=== PATIENT | female | born 1990 | race Caucasian/White ===

== ENCOUNTER → 2017-03-01 | Outpatient (CLI) | payer BC | LOC: EDBD → MW.CHOBGYN 11:09 | PROVIDERS: ATTEND Advanced Practice Midwife | DX: M54.5 Low back pain (principal) | CPT/HCPCS: 81003 ==

== ENCOUNTER 2017-03-06 19:36 | Emergency (ER) | payer BC ==
[2017-03-06] MEDS ORDERED: Acetaminophen 325 MG Tab PO ONE (20:30)
[2017-03-06] MEDS ORDERED: Acetaminophen 500 MG Tab PO ONE (20:32)
[2017-03-06] MEDS ORDERED: Penicillin V Potassium 500 MG Tab PO STA (20:46)
[2017-03-06] MEDS ORDERED: Ketorolac 60 MG/2 ML SDV IM ONE (20:46)
--- NOTE | 2017-03-06 20:47 | EDM.PDOC ---
ED HPI ENT - General Chief Complaint: ENT Problem Stated Complaint: PT HAS SORE THROAT AND BODY PAIN Time Seen by Provider: 03/06/17 19:55 Source of Information: Reports: Patient History Limitations: Reports: No limitations - History of Present Illness INITIAL COMMENTS - FREE TEXT/NARRATIVE: HISTORY AND PHYSICAL: History of present illness: [26-year-old female complaining a two-day history of worsening sore throat with difficulty swallowing. No change of voice or difficulty breathing. Patient does report fevers chills and sweats but has no headache or stiff neck.] Review of systems: As per history of present illness and below otherwise all systems reviewed and negative. Past medical history: As per history of present illness and as reviewed below otherwise noncontributory. Surgical history: As per history of present illness and as reviewed below otherwise noncontributory. Social history: No reported history of drug or alcohol abuse. Family history: As per history of present illness and as reviewed below otherwise noncontributory. Physical exam: Patient is alert with normal voice no stridor or tachypnea. Oropharynx with bilateral tonsillar erythema and white exudates with no mass or asymmetry midline uvula. HEENT: Atraumatic, normocephalic, pupils reactive, negative for conjunctival pallor or scleral icterus, mucous membranes moist, neck supple, nontender, trachea midline. Lungs: Clear to auscultation, breath sounds equal bilaterally, chest nontender. Heart: S1S2, regular, negative for clicks, rubs, or JVD. Abdomen: Soft, nondistended, nontender. Negative for masses or hepatosplenomegaly. Negative for costovertebral tenderness. Pelvis: Stable nontender. Genitourinary: Deferred. Rectal: Deferred. Extremities: Atraumatic, negative for cords or calf pain. Neurovascular unremarkable. Neuro: Awake, alert, oriented. Cranial nerves II through XII unremarkable. Cerebellum unremarkable. Motor and sensory unremarkable throughout. Exam nonfocal. Diagnostics: [] Therapeutics: [] Impression: [] Plan: [Signs and symptoms consistent with strep pharyngitis in a well-appearing patient with some fevers and remainder exam is benign]. Pen-Vee K dose given in the ED as well as prescription for an entire course of medication. Patient aware to take Tylenol /ibuprofen as needed for pain and followup with her in one to 2 days. Patient will return immediately for new severe or worsening symptoms Definitive disposition and diagnosis as appropriate pending reevaluation and review of above. 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 Respiratory History: Reports: None Gastrointestinal History: Reports: None Genitourinary History: Reports: None Musculoskeletal History: Reports: None Neurological History: Reports: Seizure Endocrine/Metabolic History: Reports: None - Infectious Disease History Infectious Disease History: Reports: None - Past Surgical History Female Surgical History: Reports: None Social & Family History - Family History Family Medical History: Noncontributory - Tobacco Use Smoking Status *Q: Current Every Day Smoker Years of Tobacco use: 1 Packs/Tins Daily: 1 - Recreational Drug Use Recreational Drug Use: No ED ROS ENT - Review of Systems Review Of Systems: See Below (PI) ED EXAM, ENT - Physical Exam Exam: See Below (History of present illness) Course - Vital Signs Last Recorded V/S: Last Vital Signs Temp 37.3 C 03/06/17 21:56 Pulse 94 03/06/17 21:56 Resp 16 03/06/17 21:56 BP 110/59 L 03/06/17 21:56 Pulse Ox 96 03/06/17 21:56 - Orders/Labs/Meds Meds: Medications Discontinued Medications Generic Name Dose Route Start Last Admin Trade Name Freq PRN Reason Stop Dose Admin Acetaminophen 1,000 mg 03/06/17 20:30 Tylenol PO 03/06/17 20:31 NOW ONE Acetaminophen 1,000 mg 03/06/17 20:32 03/06/17 20:36 Tylenol Extra Strength PO 03/06/17 20:33 1,000 mg ONETIME ONE Administration Ketorolac Tromethamine 60 mg 03/06/17 20:46 03/06/17 21:01 Toradol IM 03/06/17 20:47 60 mg ONETIME ONE Administration Penicillin V Potassium 500 mg 03/06/17 20:46 03/06/17 21:01 Veetids PO 03/06/17 20:47 500 mg NOW STA Administration Departure - Departure Time of Disposition: 20:47 Disposition: Home, Self-Care 01 Condition: good Clinical Impression: Strep pharyngitis, Pharyngitis Prescriptions: Penicillin V Potassium [IJP: Penicillin V Potassium] 500 mg PO .EVERY 6 HOURS # 40 tab Instructions: Strep Throat, [id number] Referrals: PCP,None [Primary Care Provider] - Forms: ED Department Discharge Additional Instructions: You have strep throat. Rest and drink plenty of fluids. Finish penicillin as prescribed 4 times a day for 10 days. Very warm saltwater gargles might be helpful. Take 800 mg of Motrin every 6 hours and Tylenol every 4 hours as needed for pain. Followup with your Dr. in one to 2 days and return immediately for new severe or worsening symptoms, difficulty breathing, or voice changes
[2017-03-06 22:09] VITALS: BP 110/59
== END 2017-03-06 22:05 | disposition home or self-care (01) ==
LOC: EDBD 19:36 → MW.ED 19:36
DX: J02.0 Streptococcal pharyngitis (principal); F17.210 Nicotine dependence, cigarettes, uncomplicated; Z88.8 Allergy status to other drugs, medicaments and biological substances
CPT/HCPCS: 87804; 87880; 96372; 99283; A9270; J1885

== ENCOUNTER → 2017-03-15 | Outpatient (CLI) | payer BC ==
--- NOTE | 2017-03-18 09:36 | US ---
EXAM DATE: 03/15/17 PATIENT'S AGE: 26 Patient: BRENDA REARDON Facility: [place], [place] Site . Site : 1990 Study: US Pelvis [id number]/2017 3:18:45 PM Ordering Physician: Tremayne Bingham Final Report: INDICATION: Followup left ovarian cyst noted on prior CT. COMPARISON: CT abdomen pelvis dated 10/26/2016 TECHNIQUE: 2D grimm scale and color Doppler images were acquired of the ovaries using a transvaginal approach. FINDINGS: There has been near complete resolution of the left ovarian cyst. Currently only a small subcapsular fluid pocket remains along the lateral margin of the left ovary. Adjacent to this are normal-appearing follicles. The left ovary measures 4.4 x 1.9 x 1.9 cm. The right ovary contains small follicles and appears normal. It measures 2.8 x 2.5 x 2.6 cm. The ovaries demonstrate normal arterial and venous blood flow on color Doppler analysis. There are no suspicious fluid collections within the cul-de-sac. IMPRESSION: Resolution of left ovarian cyst. Dictated by Dno Smith MD @ Mar 15 2017 4:54PM (Electronic Signature) Report Signed by Proxy and Original Signed Document filed in the Medical Record. MTDD
== END ==
LOC: EDBD → MW.US 13:52
PROVIDERS: ATTEND Advanced Practice Midwife
DX: N83.209 Unspecified ovarian cyst, unspecified side (principal)
CPT/HCPCS: 76856; 76856-26

== ENCOUNTER 2017-10-25 21:42 | Emergency (ER) | payer BC ==
[2017-10-25] MEDS ORDERED: Sodium Chloride 0.9% 1,000 ML IV ONE (21:52)
--- NOTE | 2017-10-25 21:56 | EDM.PDOC ---
ED HPI GENERAL MEDICAL PROBLEM - General Chief Complaint: General Stated Complaint: PT HAS DIFFICULTY BREATHING Time Seen by Provider: 10/25/17 21:50 - History of Present Illness INITIAL COMMENTS - FREE TEXT/NARRATIVE: HISTORY AND PHYSICAL: History of present illness: Patient 27-year-old female presents with a concern of general malaise and shortness of breath has been worse over the last 24 hours she denies fever chills nausea vomiting chest pain palpitations abdominal pain or any other concern Review of systems: As per history of present illness and below otherwise all systems reviewed and negative. Past medical history: As per history of present illness and as reviewed below otherwise noncontributory. Surgical history: As per history of present illness and as reviewed below otherwise noncontributory. Social history: No reported history of drug or alcohol abuse. Family history: As per history of present illness and as reviewed below otherwise noncontributory. Physical exam: HEENT: Atraumatic, normocephalic, pupils reactive, negative for conjunctival pallor or scleral icterus, mucous membranes moist, throat clear, neck supple, nontender, trachea midline. Lungs: Clear to auscultation, breath sounds equal bilaterally, chest nontender. Heart: S1S2, regular, negative for clicks, rubs, or JVD. Abdomen: Soft, nondistended, nontender. Negative for masses or hepatosplenomegaly. Negative for costovertebral tenderness. Pelvis: Stable nontender. Genitourinary: Deferred. Rectal: Deferred. Extremities: Atraumatic, negative for cords or calf pain. Neurovascular unremarkable. Neuro: Awake, alert, oriented. Cranial nerves II through XII unremarkable. Cerebellum unremarkable. Motor and sensory unremarkable throughout. Exam nonfocal. Diagnostics: CBC CMP UA UDS chest x-ray influenza screen d-dimer Therapeutics: Normal saline 1 L bolus Impression: #1 general malaise #2 dyspnea Definitive disposition and diagnosis as appropriate pending reevaluation and review of above. - Related Data Allergies Allergy/AdvReac Type Severity Reaction Status Date / Time ferrous sulfate Allergy Hives Verified 10/25/17 21:57 Home Meds: Home Meds . 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 Respiratory History: Reports: None Gastrointestinal History: Reports: None Genitourinary History: Reports: None Musculoskeletal History: Reports: None Neurological History: Reports: Seizure Endocrine/Metabolic History: Reports: None - Infectious Disease History Infectious Disease History: Reports: None - Past Surgical History Female Surgical History: Reports: None Social & Family History - Family History Family Medical History: Noncontributory - Tobacco Use Smoking Status *Q: Current Every Day Smoker Years of Tobacco use: 1 Packs/Tins Daily: 1 - Recreational Drug Use Recreational Drug Use: No ED ROS GENERAL - Review of Systems Review Of Systems: ROS reveals no pertinent complaints other than HPI. ED EXAM, GENERAL - Physical Exam Exam: See Below (See dictation) Course - Vital Signs Last Recorded V/S: Last Vital Signs Temp 36.5 C 10/25/17 21:54 Pulse 78 10/25/17 21:54 Resp 16 10/25/17 21:54 BP 120/67 10/25/17 21:54 Pulse Ox 100 10/25/17 21:54 - Orders/Labs/Meds Orders: Active Orders 24 hr Category Date Time Status EKG Documentation Completion [RC] STAT Care 10/25/17 21:51 Active Chest 2V [CR] Stat Exams 10/25/17 21:52 Ordered COMPREHENSIVE METABOLIC PN,CMP [CHEM] Stat Lab 10/25/17 22:10 Received Sodium Chloride 0.9% [Normal Saline] 1,000 ml Med 10/25/17 21:52 Active IV STAT Medication Orders Sodium Chloride (Normal Saline) 1,000 mls @ 999 mls/hr IV STAT ONE Stop: 10/25/17 22:52 Last Admin: 10/25/17 22:21 Dose: 999 mls/hr Labs: Laboratory Tests 10/25/17 10/25/17 10/25/17 Range/Units 21:50 21:50 22:10 WBC 10.24 (4.0-11.0) K/uL RBC 4.86 (4.30-5.90) M/uL Hgb 11.6 L (12.0-16.0) g/dL Hct 35.3 L (36.0-46.0) % MCV 72.6 L (80.0-98.0) fL MCH 23.9 L (27.0-32.0) pg MCHC 32.9 (31.0-37.0) g/dL RDW Std Deviation 43.5 (28.0-62.0) fl RDW Coeff of Landon 17 H (11.0-15.0) % Plt Count 368 (150-400) K/uL MPV 10.60 (7.40-12.00) fL Neut % (Auto) 66.2 (48.0-80.0) % Lymph % (Auto) 28.6 (16.0-40.0) % [place] % (Auto) 4.1 (0.0-15.0) % Eos % (Auto) 0.9 (0.0-7.0) % Baso % (Auto) 0.2 (0.0-1.5) % Neut # (Auto) 6.8 H (1.4-5.7) K/uL Lymph # (Auto) 2.9 H (0.6-2.4) K/uL [place] # (Auto) 0.4 (0.0-0.8) K/uL Eos # (Auto) 0.1 (0.0-0.7) K/uL Baso # (Auto) 0.0 (0.0-0.1) K/uL Nucleated RBC % 0.0 /100WBC Nucleated RBCs # 0 K/uL D-Dimer, Quantitative (0.0-0.52) mg/LFEU HCG, Qual (NEG) Urine Color YELLOW Urine Appearance HAZY Urine pH 5.5 (5.0-8.0) Ur Specific [place] >= 1.030 (1.001-1.035) Urine Protein TRACE (NEGATIVE) mg/dL Urine Glucose (UA) NEGATIVE (NEGATIVE) mg/dL Urine Ketones NEGATIVE (NEGATIVE) mg/dL Urine Occult Blood LARGE H (NEGATIVE) Urine Nitrite NEGATIVE (NEGATIVE) Urine Bilirubin NEGATIVE (NEGATIVE) Urine Urobilinogen 0.2 (<2.0) EU/dL Ur Leukocyte Esterase TRACE (NEGATIVE) Urine RBC 0-3 (0-2/HPF) Urine WBC 3-7 (0-5/HPF) Ur Epithelial Cells FEW (NONE-FEW) Amorphous Sediment LIGHT (NEGATIVE) Urine Bacteria FEW (NEGATIVE) Urine Opiates Screen NEGATIVE (NEGATIVE) Ur Oxycodone Screen NEGATIVE (NEGATIVE) Urine Methadone Screen NEGATIVE (NEGATIVE) Ur Barbiturates Screen NEGATIVE (NEGATIVE) Ur Phencyclidine Scrn NEGATIVE (NEGATIVE) Ur Amphetamine Screen POSITIVE (NEGATIVE) U Methamphetamines Scrn NEGATIVE (NEGATIVE) U Benzodiazepines Scrn NEGATIVE (NEGATIVE) U Cocaine Metab Screen NEGATIVE (NEGATIVE) U Marijuana (THC) Screen NEGATIVE (NEGATIVE) 10/25/17 10/25/17 Range/Units 22:10 22:10 WBC (4.0-11.0) K/uL RBC (4.30-5.90) M/uL Hgb (12.0-16.0) g/dL Hct (36.0-46.0) % MCV (80.0-98.0) fL MCH (27.0-32.0) pg MCHC (31.0-37.0) g/dL RDW Std Deviation (28.0-62.0) fl RDW Coeff of [place] (11.0-15.0) % Plt Count (150-400) K/uL MPV (7.40-12.00) fL Neut % (Auto) (48.0-80.0) % Lymph % (Auto) (16.0-40.0) % [place] % (Auto) (0.0-15.0) % Eos % (Auto) (0.0-7.0) % Baso % (Auto) (0.0-1.5) % Neut # (Auto) (1.4-5.7) K/uL Lymph # (Auto) (0.6-2.4) K/uL [place] # (Auto) (0.0-0.8) K/uL Eos # (Auto) (0.0-0.7) K/uL Baso # (Auto) (0.0-0.1) K/uL Nucleated RBC % /100WBC Nucleated RBCs # K/uL D-Dimer, Quantitative 0.67 H (0.0-0.52) mg/LFEU HCG, Qual NEGATIVE (NEG) Urine Color Urine Appearance Urine pH (5.0-8.0) Ur Specific [place] (1.001-1.035) Urine Protein (NEGATIVE) mg/dL Urine Glucose (UA) (NEGATIVE) mg/dL Urine Ketones (NEGATIVE) mg/dL Urine Occult Blood (NEGATIVE) Urine Nitrite (NEGATIVE) Urine Bilirubin (NEGATIVE) Urine Urobilinogen (<2.0) EU/dL Ur Leukocyte Esterase (NEGATIVE) Urine RBC (0-2/HPF) Urine WBC (0-5/HPF) Ur Epithelial Cells (NONE-FEW) Amorphous Sediment (NEGATIVE) Urine Bacteria (NEGATIVE) Urine Opiates Screen (NEGATIVE) Ur Oxycodone Screen (NEGATIVE) Urine Methadone Screen (NEGATIVE) Ur Barbiturates Screen (NEGATIVE) Ur Phencyclidine Scrn (NEGATIVE) Ur Amphetamine Screen (NEGATIVE) U Methamphetamines Scrn (NEGATIVE) U Benzodiazepines Scrn (NEGATIVE) U Cocaine Metab Screen (NEGATIVE) U Marijuana (THC) Screen (NEGATIVE) Meds: Medications Generic Name Dose Route Start Last Admin Trade Name Freq PRN Reason Stop Dose Admin Sodium Chloride 1,000 mls @ 999 mls/hr 10/25/17 21:52 10/25/17 22:21 Normal Saline IV 10/25/17 22:52 999 mls/hr STAT ONE Administration Departure - Departure Time of Disposition: 22:51 Disposition: Home, Self-Care 01 Condition: Good Clinical Impression: Weakness, Dyspnea - Discharge Information Referrals: PCP,None [Primary Care Provider] - Forms: ED Department Discharge Additional Instructions: The following information is given to patients seen in the emergency department who are being discharged to home. This information is to outline your options for follow-up care. We provide all patients seen in our emergency department with a follow-up referral. The need for follow-up, as well as the timing and circumstances, are variable depending upon the specifics of your emergency department visit. If you don't have a primary care physician on staff, we will provide you with a referral. We always advise you to contact your personal physician following an emergency department visit to inform them of the circumstance of the visit and for follow-up with them and/or the need for any referrals to a consulting specialist. The emergency department will also refer you to a specialist when appropriate. This referral assures that you have the opportunity for followup care with a specialist. All of these measure are taken in an effort to provide you with optimal care, which includes your followup. Under all circumstances we always encourage you to contact your private physician who remains a resource for coordinating your care. When calling for followup care, please make the office aware that this follow-up is from your recent emergency room visit. If for any reason you are refused follow-up, please contact the [facility] emergency department at and asked to speak to the emergency department charge nurse. CORNEL [facility] [address] [place] [id number] Follow-up primary medical doctor 1-2 days and/or clinic above push fluids return as needed as discussed - My Orders Last 24 Hours: My Active Orders 10/25/17 21:51 EKG Documentation Completion [RC] STAT 10/25/17 21:52 Chest 2V [CR] Stat Sodium Chloride 0.9% [Normal Saline] 1,000 ml IV STAT 10/25/17 22:10 COMPREHENSIVE METABOLIC PN,CMP [CHEM] Stat - Assessment/Plan Last 24 Hours: My Active Orders 10/25/17 21:51 EKG Documentation Completion [RC] STAT 10/25/17 21:52 Chest 2V [CR] Stat Sodium Chloride 0.9% [Normal Saline] 1,000 ml IV STAT 10/25/17 22:10 COMPREHENSIVE METABOLIC PN,CMP [CHEM] Stat
[2017-10-25 22:55] LABS: CHLORIDE,CL 108 mmol/L (98-110); SODIUM,NA 137 mmol/L (136-146)
[2017-10-25] MEDS ORDERED: Iopamidol 755 MG/ML 50 ML Bottle IV ONE (23:41)
[2017-10-26 00:17] VITALS: BP 126/70
--- NOTE | 2017-10-27 06:34 | CR ---
EXAM DATE: 10/25/17 PATIENT'S AGE: 27 Patient: BRENDA REARDON Facility: [place], [place] Site . Site : 1990 Study: XRay Chest [id number]/24/2017 11:03:38 PM Ordering Physician: Calvin Ochoa Final Report: INDICATION: Shortness of breath TECHNIQUE: Chest radiograph 2 views COMPARISON: None FINDINGS: Cardiovascular and mediastinum: The cardiac silhouette is normal in appearance and size. Mediastinum is within normal limits. Lungs and pleural spaces: Both lungs are unremarkable in appearance. No sign of pleural effusion. No pneumothorax is seen. Bones and soft tissues: No significant findings. IMPRESSION: 1. No acute cardiopulmonary disease seen. Dictated by: Albert Lance MD @ 10/25/2017 23:04:19 (Electronic Signature) Report Signed by Proxy. [facility]ITAL[facility]ret[facility]
--- NOTE | 2017-10-27 06:35 | CT ---
EXAM DATE: 10/25/17 PATIENT'S AGE: 27 Patient: BRENDA REARDON Facility: [place], [place] Site . Site : 1990 Study: CT Chest Angio [id number]/24/2017 11:45:31 PM Ordering Physician: Calvin Ochoa Final Report: INDICATION: Shortness of breath TECHNIQUE: CT chest pulmonary PE protocol acquired with 50 cc Isovue 370 IV contrast. COMPARISON: Chest radiograph from same date. FINDINGS: Cardiovascular structures: Normal vascular enhancement of the pulmonary arteries , no sign of pulmonary embolism. Heart size is normal. No sign of aneurysm in the thoracic aorta. Mediastinum and victor hugo: No mass or adenopathy. Lungs: Clear. Pleura and pericardium: No effusions. Chest wall and axilla: No mass or adenopathy. Upper abdomen: Unremarkable. Bones: No significant findings. IMPRESSION: Unremarkable chest CT. Specifically, no pulmonary embolism or pneumonia. Please note that all CT scans at this facility use dose modulation, iterative reconstruction, and/or weight-based dosing when appropriate to reduce radiation dose to as low as reasonably achievable. Dictated by Gabbie Rico MD @ Oct 25 2017 11:59PM (Electronic Signature) Report Signed by Proxy. [facility]
== END 2017-10-26 00:13 | disposition home or self-care (01) ==
LOC: MW.ED 21:42
DX: R06.00 Dyspnea, unspecified (principal); R53.1 Weakness; F17.210 Nicotine dependence, cigarettes, uncomplicated; Z88.8 Allergy status to other drugs, medicaments and biological substances
CPT/HCPCS: 36415; 71020; 71275; 80053; 80305; 81001; 84703; 85025; 85379; 87804; 93005; 96360; 99285; J7040; Q9967; 99284

== ENCOUNTER 2018-01-27 21:59 | Emergency (ER) | payer BC ==
[2018-01-27] MEDS ORDERED: Ketorolac 60 MG/2 ML SDV IM ONE (22:21)
--- NOTE | 2018-01-27 22:24 | EDM.PDOC ---
ED HPI GENERAL MEDICAL PROBLEM - General Chief Complaint: Back Pain or Injury Stated Complaint: BACK PAIN Time Seen by Provider: 01/27/18 22:17 - History of Present Illness INITIAL COMMENTS - FREE TEXT/NARRATIVE: HISTORY AND PHYSICAL: History of present illness: Patient is 27-year-old female history of chronic back pain presents with back pain and no new trauma numbness weakness incontinence or retention bowel or bladder other complaints Review of systems: As per history of present illness and below otherwise all systems reviewed and negative. Past medical history: As per history of present illness and as reviewed below otherwise noncontributory. Surgical history: As per history of present illness and as reviewed below otherwise noncontributory. Social history: No reported history of drug or alcohol abuse. Family history: As per history of present illness and as reviewed below otherwise noncontributory. Physical exam: HEENT: Atraumatic, normocephalic, pupils reactive, negative for conjunctival pallor or scleral icterus, mucous membranes moist, throat clear, neck supple, nontender, trachea midline. Lungs: Clear to auscultation, breath sounds equal bilaterally, chest nontender. Heart: S1S2, regular, negative for clicks, rubs, or JVD. Abdomen: Soft, nondistended, nontender. Negative for masses or hepatosplenomegaly. Negative for costovertebral tenderness. Pelvis: Stable nontender. Genitourinary: Deferred. Rectal: Deferred. Extremities: Atraumatic, negative for cords or calf pain. Neurovascular unremarkable. Neuro: Awake, alert, oriented. Cranial nerves II through XII unremarkable. Cerebellum unremarkable. Motor and sensory unremarkable throughout. Exam nonfocal. Back: Patient is no vertebral body or point tenderness patient able Sanner told back on her heels deep tendon reflexes are normal Diagnostics: UA UDS Therapeutics: Toradol 60 mg IM Impression: 1 chronic back pain Definitive disposition and diagnosis as appropriate pending reevaluation and review of above. back Pain Score (Numeric/FACES): 8 - Related Data Allergies Allergy/AdvReac Type Severity Reaction Status Date / Time ferrous sulfate Allergy Hives Verified 01/27/18 22:08 Home Meds: Home Meds . 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 Respiratory History: Reports: None Gastrointestinal History: Reports: None Genitourinary History: Reports: None Musculoskeletal History: Reports: None Other Musculoskeletal History: knee pain Neurological History: Reports: Seizure Endocrine/Metabolic History: Reports: None - Infectious Disease History Infectious Disease History: Reports: None - Past Surgical History HEENT Surgical History: Reports: Tonsillectomy GI Surgical History: Reports: Appendectomy Female Surgical History: Reports: Section, Hysterectomy Social & Family History - Family History Family Medical History: Noncontributory - Tobacco Use Smoking Status *Q: Never Smoker Years of Tobacco use: 1 Packs/Tins Daily: 1 - Caffeine Use Caffeine Use: Reports: Coffee, Tea - Recreational Drug Use Recreational Drug Use: No ED ROS GENERAL - Review of Systems Review Of Systems: ROS reveals no pertinent complaints other than HPI. ED EXAM, GENERAL - Physical Exam Exam: See Below (See dictation) Course - Vital Signs Last Recorded V/S: Last Vital Signs Temp 36.1 C 01/27/18 21:59 Pulse 84 01/27/18 21:59 Resp 18 01/27/18 21:59 BP 139/40 L 01/27/18 21:59 Pulse Ox 100 01/27/18 21:59 - Orders/Labs/Meds Orders: Active Orders 24 hr Category Date Time Status URINALYSIS W/MICROSCOPIC [UA W/MICROSCOPIC] [URIN] Stat Lab 01/27/18 22:05 Received Ketorolac [Toradol] Med 01/27/18 22:21 Once 60 mg IM ONETIME ONE Medication Orders Ketorolac Tromethamine (Toradol) 60 mg IM ONETIME ONE Stop: 01/27/18 22:22 Meds: Medications Generic Name Dose Route Start Last Admin Trade Name Freq PRN Reason Stop Dose Admin Ketorolac Tromethamine 60 mg 01/27/18 22:21 Toradol IM 01/27/18 22:22 ONETIME ONE Departure - Departure Time of Disposition: 22:23 Disposition: Home, Self-Care 01 Condition: Good Clinical Impression: Chronic back pain - Discharge Information Referrals: PCP,None [Primary Care Provider] - Additional Instructions: The following information is given to patients seen in the emergency department who are being discharged to home. This information is to outline your options for follow-up care. We provide all patients seen in our emergency department with a follow-up referral. The need for follow-up, as well as the timing and circumstances, are variable depending upon the specifics of your emergency department visit. If you don't have a primary care physician on staff, we will provide you with a referral. We always advise you to contact your personal physician following an emergency department visit to inform them of the circumstance of the visit and for follow-up with them and/or the need for any referrals to a consulting specialist. The emergency department will also refer you to a specialist when appropriate. This referral assures that you have the opportunity for followup care with a specialist. All of these measure are taken in an effort to provide you with optimal care, which includes your followup. Under all circumstances we always encourage you to contact your private physician who remains a resource for coordinating your care. When calling for followup care, please make the office aware that this follow-up is from your recent emergency room visit. If for any reason you are refused follow-up, please contact the [facility] emergency department at and asked to speak to the emergency department charge nurse. [facility] [address] [place] [address] Follow-up primary medical doctor and/or clinic above call to schedule routine appointment Medrol Dosepak as directed Motrin/Tylenol as directed return as needed as discussed - My Orders Last 24 Hours: My Active Orders 01/27/18 22:05 URINALYSIS W/MICROSCOPIC [UA W/MICROSCOPIC] [URIN] Stat 01/27/18 22:21 Ketorolac [Toradol] 60 mg IM ONETIME ONE - Assessment/Plan Last 24 Hours: My Active Orders 01/27/18 22:05 URINALYSIS W/MICROSCOPIC [UA W/MICROSCOPIC] [URIN] Stat 01/27/18 22:21 Ketorolac [Toradol] 60 mg IM ONETIME ONE
[2018-01-27 23:32] VITALS: BP 123/70
== END 2018-01-27 23:29 | disposition home or self-care (01) ==
LOC: MW.ED 21:59
DX: G89.29 Other chronic pain (principal); M54.9 Dorsalgia, unspecified; Z72.0 Tobacco use; Z90.710 Acquired absence of both cervix and uterus; Z90.49 Acquired absence of other specified parts of digestive tract; Z88.8 Allergy status to other drugs, medicaments and biological substances
CPT/HCPCS: 80305; 81001; 96372; 99283; J1885; 99282